=== PATIENT | male | born 1970 | race Two or more races ===

== ENCOUNTER 2023-08-09 15:38 | Emergency (ER) | payer OTHER ==
[~2023-08-09] VITALS: Ht 172.7 cm; Wt 83.0 kg
[2023-08-09] MEDS ORDERED: TOPROL XL50 M1 (16:55)
[2023-08-09] MEDS ORDERED: ALTACE10 MG (16:56)
[2023-08-09] MEDS ORDERED: PLAVIX75 MG (16:56)
[2023-08-09] MEDS ORDERED: ADULT LOW DOSE81 M1 (16:56)
[2023-08-09] MEDS ORDERED: ATORVASTATIN CA10 MG (16:56)
== END 2023-08-09 21:58 | disposition home or self-care (01) ==
LOC: ER 15:38
DX: M54.2 Cervicalgia (principal); R42 Dizziness and giddiness; V89.2XXA Person injured in unspecified motor-vehicle accident, traffic, initial encounter